=== PATIENT | male | born 1955 | race Asian ===

== ENCOUNTER 2016-11-01 13:42 | Day surgery (SDC) | payer OTHER ==
[~2016-11-01] VITALS: Ht 170.2 cm; Wt 85.7 kg
[~2016-11-01 13:42] MED LIST: NO MEDS TAKEN
[2016-11-01] MEDS ORDERED: ATORVASTATIN (14:12)
[2016-11-01] MEDS ORDERED: LOSARTAN POTASSIUM (14:12)
[2016-11-01 14:26] VITALS: Ht 170.2 cm; Wt 85.7 kg
[2016-11-01 15:08] VITALS: BP 131/69; PULSE 62; RESP 10
--- NOTE | 2016-11-01 15:59 | OPPN ---
Date/Time of Note Date/Time of Note DATE: 11/01/16 TIME: 15:53 Proc Note GI Procedure Date 11/01/16 Pre-procedure Diagnosis * CRC screening Post-procedure Diagnosis Assessment: * 5mm polyp rectal. Ablated * Mild Diverticulosis * Moderate size internal hemorrhoids Plan: * Review pathology * Annual Hemoccult stool testing * Surveillance colonoscopy in 5 years Procedure Performed: Colonoscopy (With ambulation) Surgeon Josh SHIN MD [employer] As[employer]er none Anesthesia Type: MAC Anesthesiologist: VANCE MARIE MD EBL none Transfusion required none Polyp 1: Distal rectum polyp Grafts/Implants none Complication(s) none Pt Condition post procedure: stable Disposition: home Indications: screening/surveillance Procedure Description After informed consent, with the patient/relatives understanding the procedure, its indications and potential risks and complications, including but not limited to: Allergic reaction, bleeding, perforation, infection, and after all pertinent questions were answered to the patient's satisfaction, the patient/ relatives signed the witnessed informed consent. Following this, premedication was administered slowly IV push under careful cardiovascular and respiratory monitoring with pulse OXIMETRY, automatic blood pressure, and lunchroom monitor. Once the sedative effect was achieved, the patient was placed in the left lateral decubitus position, digital rectal examination was performed. The colonoscope was then introduced and advanced under visual control throughout all segments of the colon including: the rectum, sigmoid, descending colon, splenic flexure, transverse colon, hepatic flexure, ascending colon and finally reaching the cecum which was clearly identified by transillumination, finger indentation and the ileocecal valve. Careful examination of the mucosa of the lower gastrointestinal tract both on insertion as well as withdrawal of the instrument disclosed the following findings: PREPARATION QUALITY: [Adequate], RECTAL EXAM: The anorectal area was visualized examined and digital rectal examination performed with the following findings: No evidence of perirectal disease, no masses. COLONIC MUCOSA: The mucosa of all segments of the colon was carefully examined and showed the following findings: There is a 3 mm polyp in the distal rectum. It was ablated with biopsy forceps. There are a few diverticula in the left side of the colon. Internal hemorrhoids are present. Otherwise the examined mucosa appears within normal limits. There is no evidence of inflammatory changes, diverticular formation, other neoplasms, vascular malformation, or any other abnormality. The instrument was then withdrawn, the patient tolerated the procedure well and was transferred out of the Endoscopy Suite awake and in good condition to continue recovery under observation. Copies To: CC: ZULEIKA SHIN MD, MORDO MD Nov 01, 2016 15:59
--- NOTE | 2016-11-01 16:02 | OPPN ---
Date/Time of Note Date/Time of Note DATE: 11/01/16 TIME: 15:59 Proc Note GI Procedure Date 11/01/16 Pre-procedure Diagnosis * Dyspepsia Post-procedure Diagnosis Assessment: * Erosive esophagitis * Moderate gastritis. Rule out H. pylori infection. Biopsies obtained Plan: * PPI therapy * Review pathology * Follow-up as previously scheduled Procedure Performed: Endoscopy (With biopsies) Surgeon Btaool SHIN MD Rehabilitation Program Coordinator none Anesthesia Type: MAC Anesthesiologist: VANCE MARIE MD EBL none Transfusion required none Biopsy 1: Gastric body and antrum Grafts/Implants none Complication(s) none Pt Condition post procedure: stable Disposition: home Indications: upper abd Sx despite ther Procedure Description After informed consent, with the patient/relatives understanding the procedure, its indications, potential risks and complications, including but not limited to : allergic reaction, bleeding, perforation or infection, and after all pertinent questions were answered to the patients satisfaction, the patient/ relatives signed witnessed informed consent. Following this, premedication was administered slowly IV push under careful cardiovascular and respiratory monitoring with pulse oximetry, automatic blood pressure, and case monitor. Once the sedative effect was achieved the patient was place in the left lateral decubitus, the panendoscope was introduced and advanced under visual control. Careful examination of the upper gastrointestinal tract, both on insertion as well as withdrawal of the instrument disclosing the following findings: ESOPHAGUS: the mucosa of the entire esophagus was carefully examined and showed the following findings: There is erythema edema and superficial erosion of the mucosa at the e.g. junction. Otherwise the mucosa appears within normal limits. There is no evidence of varices, neoplasm, or stricture. No Hiatal Hernia identified. STOMACH: Upon entrance to the stomach air was insufflated, the gastric branch distended normally. The mucosa of the fundus, body and antrum of the stomach was carefully examined both head-on and on retroflexion, and showed the following findings: There is mild erythema and edema of the mucosa of the body and antrum of the stomach. Biopsies were obtained to rule out H. pylori infection. Otherwise the mucosa appears within normal limits with no abnormalities. There is no evidence of ulcers or neoplasm. PYLORUS: The pylorus was carefully examined and showed the following findings: the pylorus appears patent and within normal limits, with no evidence of gastric outlet obstruction. DUODENUM: The duodenal mucosa was carefully examined in the duodenal bulb as well as the second portion of the duodenum and showed the following findings: the mucosa appears unremarkable with no evidence of duodenitis, ulcer or neoplasm. Copies To: CC: ZULEIKA SHIN MD, MORDO MD Nov 01, 2016 16:02
[2016-11-01] MEDS ORDERED: PROPOFOL 40 ML ONE (16:07)
[2016-11-01 16:20] VITALS: BP 136/79; PULSE 60; RESP 14
== END 2016-11-01 18:33 | disposition home or self-care (01) ==
LOC: GIL 13:42
PROVIDERS: ATTEND Internal Medicine Gastroenterology
DX: Z12.11 Encounter for screening for malignant neoplasm of colon (principal); K62.1 Rectal polyp; K57.30 Diverticulosis of large intestine without perforation or abscess without bleeding; K64.8 Other hemorrhoids; K29.70 Gastritis, unspecified, without bleeding; K20.9 Esophagitis, unspecified; E78.5 Hyperlipidemia, unspecified; I10 Essential (primary) hypertension
CPT/HCPCS: 43239; 45380; 88305; Z7610